=== PATIENT | female | born 1945 | race Caucasian/White ===

== ENCOUNTER → 2022-01-11 | Outpatient (CLI) | payer MEDICARE ==
[~2022-01-11] MED LIST: AMLO1TAB24 PO; ATEN100T PO; ATOR1TAB19 PO; ECOT81TA5 PO; METH25TAB PO; QUIN20TA48 PO; ZOLO100T PO
== END ==
LOC: M LABSMTC 11:15
PROVIDERS: ATTEND Anesthesiology
DX: Z01.812 Encounter for preprocedural laboratory examination (principal); Z11.52 Encounter for screening for COVID-19

== ENCOUNTER → 2022-02-09 | Outpatient (CLI) | payer MEDICARE ==
[~2022-02-09] MED LIST changes: +CALCCHW4 PO
== END ==
LOC: M LABSMTC 10:19
PROVIDERS: ATTEND Anesthesiology
DX: Z01.812 Encounter for preprocedural laboratory examination (principal); Z20.822 Contact with and (suspected) exposure to COVID-19

== ENCOUNTER 2022-02-11 06:16 | Day surgery (SDC) | payer MEDICARE ==
[~2022-02-11] VITALS: Ht 152.4 cm; Wt 44.2 kg
[~2022-02-11 06:16] MED LIST changes: +CYCLOPENTOLATE 1% OPHTH SOLN 2ML BTL OS SCH; +FLURBIPROFEN 0.03% OPHTH SOLN 2.5 ML OS SCH; +PHENYLEPHRINE 2.5% OPHTH SOL 2ML OS SCH; +TETRACAINE 0.5% OPHTH SOLN 4ML OS SCH
[2022-02-11] MEDS ORDERED: MAXITROL OPHTH SUSP 5ML As Ordered ONE (06:44)
[2022-02-11] MEDS ORDERED: LIDOCAINE 1% 1ML PF SYRINGE (OR EYE CASES) As Ordered ONE (06:44)
[2022-02-11] MEDS ORDERED: LR 1,000 ML IV SCH (07:00)
[2022-02-11] MEDS ORDERED: MIDAZOLAM INJ 2MG/2ML VIAL (J2250 PER 1MG) As Ordered ONE (07:24)
[2022-02-11] MEDS ORDERED: fentaNYL 100 MCG/2 ML INJECTION As Ordered ONE (07:24)
[2022-02-11 09:15] VITALS: BP 107/60
== END 2022-02-11 09:17 | disposition home or self-care (01) ==
LOC: M SDC 06:16
PROVIDERS: ATTEND Ophthalmology
DX: H25.12 Age-related nuclear cataract, left eye (principal); I10 Essential (primary) hypertension; E78.5 Hyperlipidemia, unspecified; M19.90 Unspecified osteoarthritis, unspecified site; F41.9 Anxiety disorder, unspecified; F32.A Depression, unspecified; J44.9 Chronic obstructive pulmonary disease, unspecified; F17.210 Nicotine dependence, cigarettes, uncomplicated; K76.9 Liver disease, unspecified; E03.9 Hypothyroidism, unspecified; Z79.82 Long term (current) use of aspirin; Z79.899 Other long term (current) drug therapy; Z83.3 Family history of diabetes mellitus; Z82.49 Family history of ischemic heart disease and other diseases of the circulatory system; Z80.8 Family history of malignant neoplasm of other organs or systems
CPT/HCPCS: 66984; J2250; J3010; V2632

== ENCOUNTER → 2022-03-08 | Outpatient (CLI) | payer MEDICARE ==
[~2022-03-08] MED LIST changes: -CYCLOPENTOLATE 1% OPHTH SOLN 2ML BTL OS SCH; +ERGO500029; -FLURBIPROFEN 0.03% OPHTH SOLN 2.5 ML OS SCH; -PHENYLEPHRINE 2.5% OPHTH SOL 2ML OS SCH; -TETRACAINE 0.5% OPHTH SOLN 4ML OS SCH
== END ==
LOC: M LABSMTC 11:51
PROVIDERS: ATTEND Anesthesiology
DX: Z01.818 Encounter for other preprocedural examination (principal); Z11.52 Encounter for screening for COVID-19

== ENCOUNTER 2022-03-11 06:23 | Day surgery (SDC) | payer MEDICARE ==
[~2022-03-11] VITALS: Ht 152.4 cm; Wt 44.9 kg
[~2022-03-11 06:23] MED LIST changes: +CYCLOPENTOLATE 1% OPHTH SOLN 2ML BTL OD SCH; +FLURBIPROFEN 0.03% OPHTH SOLN 2.5 ML OD SCH; +PHENYLEPHRINE 2.5% OPHTH SOL 2ML OD SCH
[2022-03-11] MEDS ORDERED: MAXITROL OPHTH SUSP 5ML As Ordered ONE (06:33)
[2022-03-11] MEDS ORDERED: LIDOCAINE 1% 1ML PF SYRINGE (OR EYE CASES) As Ordered ONE (06:33)
[2022-03-11] MEDS: TETRACAINE 0.5% OPHTH SOLN 4ML OD SCH ×2 (06:45→08:14)
[2022-03-11] MEDS ORDERED: LR 1,000 ML IV SCH (07:00)
[2022-03-11] MEDS ORDERED: MIDAZOLAM INJ 2MG/2ML VIAL As Ordered ONE (07:17)
[2022-03-11 08:36] VITALS: BP 141/80
== END 2022-03-11 08:51 | disposition home or self-care (01) ==
LOC: M SDC 06:23
PROVIDERS: ATTEND Ophthalmology
DX: H25.11 Age-related nuclear cataract, right eye (principal); I10 Essential (primary) hypertension; E78.5 Hyperlipidemia, unspecified; E05.00 Thyrotoxicosis with diffuse goiter without thyrotoxic crisis or storm; J44.9 Chronic obstructive pulmonary disease, unspecified; F17.210 Nicotine dependence, cigarettes, uncomplicated; Z79.899 Other long term (current) drug therapy; M81.0 Age-related osteoporosis without current pathological fracture
CPT/HCPCS: 66984; V2632

== ENCOUNTER 2024-05-10 16:15 | Outpatient (CLI) | payer MEDICARE ==
[~2024-05-10] VITALS: Ht 152.4 cm; Wt 46.8 kg
[~2024-05-10 16:15] MED LIST changes: -CYCLOPENTOLATE 1% OPHTH SOLN 2ML BTL OD SCH; -FLURBIPROFEN 0.03% OPHTH SOLN 2.5 ML OD SCH; +METH-1386 PO; -METH25TAB PO; -PHENYLEPHRINE 2.5% OPHTH SOL 2ML OD SCH
[2024-05-10 16:21] VITALS: BP 151/72; O2SAT 94
[2024-05-10] MEDS: ZOLEDRONIC ACID 5 MG in IV 1 EA IV ONE (16:32)
[2024-05-10 17:05] VITALS: BP 136/74; O2SAT 96
== END 2024-05-10 17:15 ==
LOC: M INFU 16:15
PROVIDERS: ATTEND Nurse Practitioner Family
DX: M81.0 Age-related osteoporosis without current pathological fracture (principal)
CPT/HCPCS: 96365; J3489